=== PATIENT | female | born 1990 | race Caucasian/White ===

== ENCOUNTER → 2016-06-23 | Outpatient (CLI) | payer OTHER ==
[~2016-06-23] MED LIST: AC500T PO; AZIT250T81 PO; IBUP200C11 PO; METH4TAB27 PO; PREN1TAB76 PO
[2016-06-23 15:58] VITALS: BP 111/66
--- NOTE | 2016-06-23 15:58 | Urgent Care T Sheet Gen (E) ---
Intake General Temperature (Fahrenheit): 98.9 Pulse: 96 Blood Pressure Systolic: 111 Blood Pressure Diastolic: 66 Respirations: 20 SPO2: 100 Description of Symptoms Patient presents with a 9 day history of constant PND, irritated throat and cough. Patient knows it is from her allergies however she cannot get them under control. Has recently switched from Benadryl prn to Zyrtec daily. Also uses Flonase however isn't sure it is working. Cough is worse at night. States she has a constant tickle in her throat. No fever. History of Present Illness Allergies: Coded Allergies: No Known Drug Allergies (Unverified , 10/13/12) Home Meds Active Scripts Methylprednisolone (Medrol Dosepack)21 Tab/Pkt Tablet6 Tab PO DAILY Inflammation #1 PKT Ref 0 Take 6 tabs po on day 1 then decrease by 1 tab daily until packet is gone. Prov:JESUS ALBERTO JEFFRIES 02/03/16 Azithromycin (Zithromax [facility])6 Tab/Pkt [id number] Mg PO SEE INSTRUCTIONS #6 TAB Ref 0 Day One: Take 2 tablets by mouth Days Two-Five: Take 1 tablet by mouth Prov:JESUS ALBERTO JEFFRIES 02/03/16 Azithromycin (Zithromax [facility])6 Tab/Pkt [id number] Mg PO SEE INSTRUCTIONS #6 TAB Ref 0 Day One: Take 2 tablets by mouth Days Two-Five: Take 1 tablet by mouth Prov:JESUS ALBERTO JEFFRIES 11/28/15 Methylprednisolone (Medrol Dosepack)21 Tab/Pkt Tablet6 Tab PO DAILY Inflammation #1 PKT Ref 0 Take 6 tabs po on day 1 then decrease by 1 tab daily until packet is gone. Prov:JESUS ALBERTO JEFFRIES 11/28/15 Reported Medications Acetaminophen (Tylenol Tab)500 Mg Pen918-1,000 Mg PO Q6H PRN 10/16/12 Ibuprofen (Advil)200 Mg [id number] Mg PO Q6H PRN 10/16/12 Vits W-Ca,Fe,Fa(<1MG) ( Formula)1 Each Tablet1 Each PO DAILY 10/16/12 Respiratory Constitutional Symptoms: No syptoms reported EENTM: Nose Congestion Throat pain Respiratory: Cough Cardiovascular: No symptoms reported Gastrointestinal/Abdominal: No symptoms reported Estimated Date of Delivery: 10-16-12 All Other Systems Reviewed Remaining Systems: All other systems reviewed with negative findings Past [id number]-[id number]-[id number] Hx Reproductive System : 1 Abortions: 0 Living Children: 0 HIV/AIDS: Negative Physical Exam Physical Exam General Appearance: WD/WN No apparent distress Eyes, Ears, Nose, Throat Ex: TMs normal (air fluid bubbles bilaterally.) Pharyngeal erythema (cobblestone appearance, thick PND.) Other (clear nasal drainage with pale nasal turbinates.) Neck Exam: SuppleNo Lymphadenopathy Respiratory Exam: Lungs clear Normal breath sounds Cardiovascular Exam: Regular rate, rhythm Departure Urgent Care Impression Impression: Primary Impression: Allergic rhinitis Qualified Code: J30.1 - Allergic rhinitis due to pollen Departure Disposition: HOME OR SELF-CARE Condition: Stable Referrals: PARDEEP SOUZA MD (PCP) Additional Instructions: I do believe the patient's symptoms are due to allergies. Discussed treatment such as oral steroid vs IM steroids. Since this isn't typically her bad season, we opted to treat with Medrol dose pack. Hopeful this will calm everything down and allow her Zyrtec to better control her symptoms. Also suggested switching from Flonase to Rhinocort since she feels the Flonase isn't helping Return as needed. No NSAIDs while on steroid. Patient understands DC instructions. All questions were answered. Scripts Methylprednisolone (Medrol Dosepack)21 Tab/Pkt Tablet6 Tab PO DAILY Inflammation #1 PKT Ref 0 6 tabs po on day 1 then decrease by 1 tab daily until packet is gone Prov:JESUS ALBERTO JEFFRIES 06/23/16 End of report . JESUS ALBERTO JEFFRIES June 23, 2016 15:58
== END ==
LOC: MHUC 15:40
PROVIDERS: ATTEND Physician Assistant
DX: J30.1 Allergic rhinitis due to pollen (principal)
CPT/HCPCS: 99213